=== PATIENT | male | born 1990 | race African-American/Black ===

== ENCOUNTER 2017-07-26 10:44 | Inpatient (IN) | payer OTHER ==
[~2017-07-26] VITALS: Ht 180.3 cm; Wt 143.7 kg
[2017-07-26] MEDS ORDERED: SODIUM CHLORIDE 0.9% 1000ML 1,000 ML IV STA (11:25)
[2017-07-26] MEDS ORDERED: LORAZEPAM 2 MG/ML 1 ML VIAL IV PRN ×3 (11:45→17:15)
[2017-07-26 11:47] LABS: HEMATOCRIT 46.8 % (42-52); MEAN CELL VOLUME 86.3 fL (80-100); MEAN CORPUSCULAR HEMOGLOBIN 28.4 pg (25-34); MEAN CORPUSCULAR HGB CONC 32.9 g/dl (32-36); MEAN PLATELET VOLUME 12.4 fL (7.4-10.4); PLATELET COUNT 201 K/uL (130-400); RED BLOOD COUNT 5.42 M/uL (4.7-6.1); WHITE BLOOD COUNT 9.27 K/uL (4.8-10.8)
[2017-07-26] MEDS ORDERED: TOPI25TA99 PO (12:06)
[2017-07-26] MEDS ORDERED: LEVE500T13 PO (12:06)
[2017-07-26] MEDS ORDERED: PRAZ1CAP PO (12:06)
[2017-07-26] MEDS ORDERED: DIPH25CA5 PO (12:06)
[2017-07-26] MEDS ORDERED: THIO1CAP PO (12:06)
[2017-07-26] MEDS ORDERED: DOXE50CA3 PO (12:06)
[2017-07-26] MEDS ORDERED: THIO5CAP2 PO (12:06)
[2017-07-26] MEDS ORDERED: ESCI1TAB10 PO (12:06)
[2017-07-26 12:12] LABS: ALKALINE PHOSPHATASE 65 U/L (45-117); ALT/SGPT 53 U/L (12-78); BLOOD UREA NITROGEN 14 mg/dl (7-18); CALCIUM 9.1 mg/dl (8.5-10.1); CARBON DIOXIDE 25 mmol/L (21-32); CHLORIDE 101 mmol/L (98-107); CREATININE 1.13 mg/dl (0.60-1.40); GLUCOSE 90 mg/dl (70-99); SODIUM 138 mmol/L (136-145)
[2017-07-26 12:23] LABS: ACETAMINOPHEN < 2 ug/ml (10-30)
[2017-07-26 12:52] LABS: PROTHROMBIN TIME (PATIENT) 11.1 SECONDS (9.0-12.0)
[2017-07-26 12:55] LABS: POTASSIUM 4.4 mmol/L (3.5-5.1)
[2017-07-26 14:35] VITALS: O2SAT 97
--- NOTE | 2017-07-26 15:11 | DIAGNOSTIC IMAGING REPORT ---
CT HEAD WITHOUT CONTRAST (CT) CLINICAL HISTORY: altered mental status COMPARISON STUDY: No previous studies for comparison. TECHNIQUE: Axial CT of the brain is performed from the vertex to the skull base. IV contrast was not administered for this examination. A dose lowering technique was utilized adhering to the principles of ALARA. CT DOSE: 537.48 mGy.cm FINDINGS: No intra or extra-axial mass lesions are visualized. There is no CT evidence of acute cortical infarction. There is no evidence of midline shift. There is no acute hemorrhage. No calvarial fractures are visualized. There is no evidence of pathologic ventricular dilatation. There is no evidence of acute sinusitis IMPRESSION: Normal noncontrast head CT. Electronically signed by: Bipin Kerr M.D. 07/26/2017 3:10 PM Dictated Date/Time: 07/26/2017 3:09 PM
[2017-07-26 15:29] LABS: URINE APPEARANCE CLEAR (CLEAR); URINE BILIRUBIN NEG (NEG); URINE COLOR YELLOW; URINE NITRITE NEG (NEG); UROBILINOGEN NEG (NEG)
[2017-07-26 15:40] LABS: MANUAL MICROSCOPIC REQUIRED? NO; REVIEW REQ? NO
[2017-07-26 15:46] LABS: BENZODIAZEPINE, URINE NEG (NEG); COCAINE,URINE NEG (NEG); PHENCYCLIDINE, URINE NEG (NEG)
[2017-07-26] MEDS ORDERED: POLYETHYLENE (MIRALAX) 17 GM PACK PO PRN (16:30)
[2017-07-26] MEDS ORDERED: MAGNESIUM HYDROXIDE SUSP 30 ML UDC PO PRN (16:30)
[2017-07-26] MEDS ORDERED: ACETAMINOPHEN 325 MG TAB PO PRN (16:30)
[2017-07-26] MEDS ORDERED: ALUMINUM/MAGNESIUM/SIMETH (MAALOX MAX) 30 ML UDC PO PRN (16:30)
[2017-07-26] MEDS ORDERED: ONDANSETRON INJ 2 MG/ML 2 ML VIAL IV PRN (16:30)
--- NOTE | 2017-07-26 16:40 | History and Physical ---
History & Physical Date of Service Jul 26, 2017. History & Physical delirium possible from substance abuse, hx of psychosis, anxiety, [id number]
[2017-07-26] MEDS ORDERED: LORAZEPAM INJ 1 MG in SYRINGE 0.5 ML IV PRN (17:15)
--- NOTE | 2017-07-26 17:42 | HISTORY & PHYSICAL EXAMINATION ---
DATE OF ADMISSION: 07/26/2017 This is a level 3 observation H&P - 35 minutes. CHIEF COMPLAINT: Agitation and delirium. HISTORY OF PRESENT ILLNESS: The patient is a 26-year-old white male with hx of anxiety sent to the hospital Emergency Room because of agitation, delirium and shaky. Per report, the patient possibly has overdosed this morning. Per correctional officers, the patient was taken to the [facility] at around 4:00 this morning. He had seizure-like episodes. There was a fingertip in right beside the patient, which is testing. the substance the patient taken was unknown. The patient has been uncooperative, has a spit mask on. aoc plans intelligence officer denied patient with any loss of conscious. When I interviewed with the patient, he is lethargic but awake, alert and orientated. I answered the questions, but may fall asleep very soon, somewhat agitation. Denied fever or chills. Denied headache, denied diaphoresis. Denied visual changes. Denied neck pain. Denied chest pain, palpitations. There was no cough or difficulty breathing. There was no nausea, vomiting, abdominal pain. Denied diarrhea or constipation. Denied dysuria, urgency frequencies. The patient has been moving upper and lower extremities. The patient is bilateral hand cuffed because of agitation. PAST MEDICAL HISTORY: Not significant per report. REVIEW OF SYSTEMS: Please see HPI. PAST SURGICAL HISTORY: Unknown. FAMILY HISTORY: Not obtainable. SOCIAL HISTORY: Denied tobacco abuse disorder, denied illicit drug abuse. Denied alcohol abuse disorder. MEDICATIONS: Taking at home prior to this admission include Benadryl 50 mg p.o. at bedtime, Doxepin 100 mg p.o. at bedtime, lisinopril 20 mg p.o. at bedtime, Keppra 500 mg p.o. b.i.d., prazosin 3 mg p.o. at bedtime, thiothixene 6 mg p.o. at bedtime, and Topamax 75 mg p.o. b.i.d. ALLERGIES: ALLERGY TO: 1. PENICILLIN 2. POSSIBLE SEAFOOD. PHYSICAL EXAMINATION: VITAL SIGNS: Temperature is 37.1, pulse 86 and the highest pulse was 135, respiratory rate 19, blood pressure 140/86, pulse ox was 97% in room air. GENERAL: The patient is a -British male, mild lethargic but arousable, awake, alert and orientated and answers some simple questions, but not able to get details of the information. May possible fall asleep very soon. HEENT: Normocephalic. Pupils equal, round, responds to light, about 4-5 mm. NECK: Supple. Thyroid no enlargement. Trachea midline. HEART: Regular rhythm. S1, S2. LUNGS: Decreased breathing sounds. There was no wheezing, rhonchi or crackles. ABDOMEN: Soft, nontender. Bowel sound was positive. GENITOURINARY AND RECTAL: Deferred. EXTREMITIES: Bilateral lower extremities, no edema. Homans sign was negative. Calf was nontender. NEUROLOGIC: Cranial nerves II-XII was intact. There was no facial droop. Moved upper and lower extremities. There was no obvious deficits. IMAGING STUDIES: Head CT studies, normal noncontrast head CT. LABORATORY STUDIES: WBC 9.2, hemoglobin 15, platelets 201. Sodium 138, potassium 4.4, BUN 14, creatinine 1.1. Blood glucose 90. EKG - sinus tachycardia. ASSESSMENT AND PLAN: A 26-year-old white male from inmate [facility], which the problem below: 1. Mental status changes, agitation, encephalopathy, possible from the substance abuse/over dose . 2. Possible history of anxiety, is taking medications of lisinopril. 3. Possible history of seizure, is taking medicine of Keppra. PLAN: Because of the patient still has lethargic and mild agitation, he got 1 dose of Ativan in the Emergency Room. We will keep him in observation, but I will be kept him in the tele monitor. Possible substance abuse which caused delirium and encephalopathy. Need to have fall precaution and injury precaution and I will arrange Ativan as needed 1 mg for agitation. We will continue Keppra, but change compared to IV because possible he is not able to eat and drink for now. As now as he able to wake up enough to eat and drink, we will give him some clear liquid diet, for now will give him some IV fluid. We will check the lab of TSH. Follow up lab tomorrow morning. Continue tele monitor. Will follow up the toxic screening. GI and DVT prophylaxis is covered. The patient is full code. MTDD
[2017-07-26] MEDS ORDERED: IV FLUIDS COMPLETED PRN (18:00)
--- NOTE | 2017-07-26 18:02 | EMERGENCY ROOM VISIT NOTE ---
History Report prepared by Lavern: Hernando Hernández Under the Supervision of: Dr. Shakeel Mendes M.D. First contact with patient: 11:25 Chief Complaint: OVERDOSE (ACCIDENTAL) Stated Complaint: OVERDOSE Nursing Triage Summary: Pt took an unknown substance, pt with spit mask on, guards at BS History of Present Illness The patient is a 26 year old male who presents to the Emergency Room with complaints of a persistent overdose that started earlier this morning. Per the correctional officers, the patient was taken to the [facility] around 0400 this morning, and had a seizure-like episode. There was a fingertip of a glove right beside the patient in his cell and this was concerning for drug paraphernalia. They have had a rash of K2 overdoses recently. That Glove is currently getting testing. There was no noted blood or trauma at the scene. At the moment , the substance that the patient took is unknown. The patient has been uncooperative, and has a spit mask on. His escorts deny current fevers, diaphoresis, breathing difficulties, nausea, vomiting, melena, hematochezia, weakness,rash, or other complaints. History limited secondary to patient's altered mental status. Source of History: other (correctional officers) History Limited By: AMS Onset: Earlier this morning Position: other (global - overdose) Quality: other (of unknown substance) Timing: other (persistent) Note: Associated symptoms: Patient was uncooperative, has spit mask on. Had seizure- type episode earlier this morning at [facility]. Review of Systems ROS limited secondary to patient's altered mental status. Past Medical & Surgical Medical Problems: (1) dilirium possible from sustance abuse (2) No pertinent past medical history Family History Unobtainable Social History Smoking Status: Unknown if Ever Smoked Marital Status: other (unknown) Housing Status: other (prisoner) Occupation Status: other (prisoner) Current/Historical Medications Scheduled Diphenhydramine Hcl (Benadryl), 50 MG PO HS Doxepin (Sinequan), 100 MG PO HS Escitalopram Oxalate (Lexapro), 20 MG PO HS Levetiracetam (Keppra), 500 MG PO BID Prazosin Hcl (Minipress), 3 MG PO HS Thiothixene (Navane), 1 MG PO HS Thiothixene (Navane), 5 MG PO HS Topiramate (Topamax ), 75 MG PO BID Allergies Coded Allergies: Penicillins (Unverified Allergy, Unknown, UNKNOWN, 07/26/17) Uncoded Allergies: SEAFOOD (Allergy, Unknown, UNKNOWN, 07/26/17) Physical Exam Vital Signs Date Time Temp Pulse Resp B/P (MAP) Pulse Ox O2 Delivery O2 Flow Rate FiO2 07/26/17 16:07 37.1 07/26/17 14:35 86 19 140/86 97 Room Air 07/26/17 11:01 135 07/26/17 10:54 105 18 114/94 94 Room Air Physical Exam GENERAL: Awake, agitated, very labile affect. HENT: Normocephalic, atraumatic. Oropharynx unremarkable. EYES: Normal conjunctiva. Sclera non-icteric. Pupils equal, round and reactive at 7 mm. NECK: Supple. No nuchal rigidity. FROM. No JVD. RESPIRATORY: Clear to auscultation. CARDIAC: Tachycardic rate, normal rhythm. Extremities warm and well perfused. Pulses equal. ABDOMEN: Soft, non-distended. No tenderness to palpation. No rebound or guarding. No masses. RECTAL: Deferred. MUSCULOSKELETAL: Upper extremities are atraumatic. Chest examination reveals no tenderness. The back is symmetrical on inspection without obvious abnormality. There is no CVA tenderness to palpation. No joint edema. LOWER EXTREMITIES: Lower extremities are atraumatic. Calves are equal size bilaterally and non-tender. No edema. No discoloration. NEURO: Altered sensorium, not following commands but responding to verbal stimuli. Rambling but speech is relatively clear, except nonsensical. SKIN: No rash or jaundice noted. Medical Decision & Procedures ER Provider Diagnostic Interpretation: CT: Radiology results as stated below per my review and radiologist interpretation CT HEAD WITHOUT CONTRAST (CT) CLINICAL HISTORY: altered mental status COMPARISON STUDY: No previous studies for comparison. TECHNIQUE: Axial CT of the brain is performed from the vertex to the skull base. IV contrast was not administered for this examination. A dose lowering technique was utilized adhering to the principles of ALARA. CT DOSE: 537.48 mGy.cm FINDINGS: No intra or extra-axial mass lesions are visualized. There is no CT evidence of acute cortical infarction. There is no evidence of midline shift. There is no acute hemorrhage. No calvarial fractures are visualized. There is no evidence of pathologic ventricular dilatation. There is no evidence of acute sinusitis IMPRESSION: Normal noncontrast head CT. Electronically signed by: Bipin Kerr M.D. 07/26/2017 3:10 PM Dictated Date/Time: 07/26/2017 3:09 PM Laboratory Results 07/26/17 11:20 07/26/17 11:20 07/26/17 12:22 Test 07/26/17 11:20 07/26/17 12:22 07/26/17 12:49 07/26/17 15:10 Red Blood Count 5.42 M/uL (4.7-6.1) Mean Corpuscular Volume 86.3 fL (80-100) Mean Corpuscular Hemoglobin 28.4 pg (25-34) Mean Corpuscular Hemoglobin Concent 32.9 g/dl (32-36) RDW Standard Deviation 43.4 fL (36.4-46.3) RDW Coefficient of Variation 13.8 % (11.5-14.5) Mean Platelet Volume 12.4 fL (7.4-10.4) Anion Gap 12.0 mmol/L (3-11) Est Creatinine Clear Calc Drug Dose 143.1 ml/min Estimated GFR () 102.0 Estimated GFR (Non- 88.0 BUN/Creatinine Ratio 12.0 (10-20) Calcium Level 9.1 mg/dl (8.5-10.1) Total Bilirubin 0.7 mg/dl (0.2-1) Alanine Aminotransferase (ALT/SGPT) 53 U/L (12-78) Alkaline Phosphatase 65 U/L (45-117) Total Protein 7.7 gm/dl (6.4-8.2) Albumin 4.0 gm/dl (3.4-5.0) Lipase 58 U/L (73-393) Salicylates Level < 1.7 mg/dl (2.8-20) Acetaminophen Level < 2 ug/ml (10-30) Ethyl Alcohol mg/dL < 3.0 mg/dl (0-3) Prothrombin Time 11.1 SECONDS (9.0-12.0) Prothromb Time International Ratio 1.0 (0.9-1.1) Activated Partial Thromboplast Time 26.8 SECONDS (21.0-31.0) Partial Thromboplastin Ratio 1.0 Direct Bilirubin 0.1 mg/dl (0-0.2) Aspartate Amino Transf (AST/SGOT) 22 U/L (15-37) Total Creatine Kinase 366 U/L (39-308) Thyroid Stimulating Hormone (TSH) 0.128 uIu/ml (0.300-4.500) Osmolality 288 mOsm/kg (280-300) Urine Color YELLOW Urine Appearance CLEAR (CLEAR) Urine pH 6.0 (4.5-7.5) Urine Specific [place] 1.020 (1.000-1.030) Urine Protein TRACE (NEG) Urine Glucose (UA) NEG (NEG) Urine Ketones TRACE (NEG) Urine Occult Blood NEG (NEG) Urine Nitrite NEG (NEG) Urine Bilirubin NEG (NEG) Urine Urobilinogen NEG (NEG) Urine Leukocyte Esterase TRACE (NEG) Urine WBC (Auto) 1-5 /hpf (0-5) Urine RBC (Auto) 0-4 /hpf (0-4) Urine Hyaline Casts (Auto) 1-5 /lpf (0-5) Urine Epithelial Cells (Auto) 5-10 /lpf (0-5) Urine Bacteria (Auto) NEG (NEG) Urine Opiates Screen NEG (NEG) Urine Methadone, Qualitative NEG (NEG) Urine Barbiturates NEG (NEG) Urine Phencyclidine (PCP) Level NEG (NEG) Ur Amphetamine/Methamphetamine NEG (NEG) MDMA (Ecstasy) Screen NEG (NEG) Urine Benzodiazepines Screen NEG (NEG) Urine Cocaine Metabolite NEG (NEG) Urine Marijuana (THC) NEG (NEG) Test 07/26/17 16:18 Laboratory results reviewed by me Medications Administered Medications (Trade) Dose Ordered Sig/Huber Route Start Time Stop Time Status Last Admin Dose Admin Sodium Chloride 1,000 ml @ 999 mls/hr Q1H1M STAT IV 07/26/17 11:25 07/26/17 12:25 DC 07/26/17 11:25 999 MLS/HR Lorazepam (Ativan Inj) 1 mg Q10M PRN IV 07/26/17 11:45 07/26/17 17:03 DC 07/26/17 11:47 1 MG Lorazepam (Ativan Inj) 1 mg Q10M PRN IV 07/26/17 17:15 08/25/17 17:14 07/26/17 15:00 1 MG ECG Indication: altered mental status Rate (beats per minute): 133 Rhythm: sinus tachycardia, other (poor baseline data) Findings: no acute ischemic change (no obvious), no ectopy ED Course 1125: Ordered NSS 1000 ml @ 999 mls/hr IV. 1131: The patient was evaluated in room C8. A limited history and physical exam was performed. 1145: Ordered Ativan Inj 1 mg IV PRN. 1305: I reevaluated the patient and he is improved somewhat. 1351: I reevaluated the patient and he is doing the same. 1449: The nursing staff notified me that the patient needs a cath urine. 1609: Upon reexamination, the patient was resting. I discussed the test results and treatment plan with the guards. They expressed understanding and agreement. The patient will be evaluated for further management. 1610: I discussed the patient with Dr. Shefali MATA box printing machine operator - he will evaluate the patient for further treatment. Medical Decision Prior records/ancillary studies reviewed and summarized above. Nursing notes reviewed and agree them. Additional history obtained from the correctional officers. The patient's history was concerning for altered mental status with probable overdose. Differential diagnosis: Etiologies such as toxicologic, infection, hypoglycemia, electrolyte abnormalities, cardiac sources, intracerebral event, neurologic, as well as others were entertained. Physical examination: As above. The patient was agitated but would calm down. ER treatment provided: IV Lock Normal saline hydration IV Ativan 1 mg 2 On reassessment the patient felt better. Diagnostics interpretation by me: ECG: Shows sinus tachycardia. Poor baseline data. Cardiac monitoring revealed the tachycardia to resolve. Sinus rhythm noted. The labs revealed an unremarkable CBC and chemistry panel. Urine drug screen was negative. Tylenol, salicylate, and alcohol levels negative. The patient's sympathetic stimulants and cannabinoids are pending. TSH was noted to be mildly low. Imaging studies: CT scan as above. Consultation: A consultation was placed with Dr. Meehan, the hospitalist. The case was discussed and diagnostics were reviewed. The patient was evaluated in the ER for further treatment. I did discuss the abnormal TSH. He will work this up as an inpatient. Medication Reconcilliation Current Medication List: was personally reviewed by me Blood Pressure Screening Patient's blood pressure: Normal blood pressure Consults Time Called: 1605 Consulting Physician: Dr. Shefali MATA box printing machine operator Returned Call: 1610 I discussed the patient with Dr. Shefali [place] [facility] [place] - he will evaluate the patient for further treatment. Impression Primary Impression: Encephalopathy Scribe Attestation The scribe's documentation has been prepared under my direction and personally reviewed by me in its entirety. I confirm that the note above accurately reflects all work, treatment, procedures, and medical decision making performed by me. Departure Information Dispostion Being Evaluated By Hospitalist Referrals Song RATLIFF (PCP) Patient Instructions My [facility]
[2017-07-26 18:23] VITALS: BP 96/53; PULSE 82; TEMP 37.5; O2SAT 96
[2017-07-26] MEDS ORDERED: PANTOprazole INJ 40 MG in SYRINGE 0 ML IV ONE (18:30)
[2017-07-26] MEDS: SODIUM CHLORIDE 0.9% 1000ML 1,000 ML IV SCH ×2 (18:45→22:58)
[2017-07-26 18:52] VITALS: BP 116/81; PULSE 67; TEMP 37.2; O2SAT 97
[2017-07-26] MEDS ORDERED: LEVETIRACETAM IV 500 MG in DEXTROSE 5% 100ML 100 ML IV SCH (21:00)
[2017-07-26] MEDS: ESCITALOPRAM OXALATE 20 MG TAB PO SCH (21:00)
[2017-07-26] MEDS: PRAZOSIN HCL 1 MG CAP PO SCH (21:00)
[2017-07-26] MEDS: DOXEPIN HCL 50 MG CAP PO SCH (21:00)
[2017-07-26] MEDS: TOPIRAMATE 25 MG TAB PO SCH (21:00)
[2017-07-26] MEDS: ENOXAPARIN 40 MG/0.4 ML SYR SC SCH (21:00)
[2017-07-26 23:26] VITALS: BP 116/81; PULSE 67; TEMP 37.2; Ht 180.3 cm; Wt 143.7 kg
[2017-07-27] VITALS (11 sets, daily range): BP systolic 84–158; BP diastolic 40–87; PULSE 39–78; TEMP 36.5–37.3; O2SAT 93–98
[2017-07-27] MEDS ORDERED: NURSING VERBAL MED ORDER ONE (04:15)
[2017-07-27] MEDS ORDERED: LEVETIRACETAM 500 MG TAB PO SCH (04:30)
[2017-07-27] MEDS: SODIUM CHLORIDE 0.9% 1000ML 1,000 ML IV SCH ×2 (05:38→08:32)
[2017-07-27 06:24] LABS: BASO % 0.2 %; BASO ABS # 0.01 K/uL (0-0.2); COMPLETE YES; EOS % 0.8 %; HEMATOCRIT 45.8 % (42-52); LYMPH % 38.5 %; LYMPH ABS # 2.41 K/uL (1.2-3.4); MEAN CELL VOLUME 85.4 fL (80-100); MEAN CORPUSCULAR HEMOGLOBIN 29.5 pg (25-34); MEAN CORPUSCULAR HGB CONC 34.5 g/dl (32-36); MEAN PLATELET VOLUME 12.2 fL (7.4-10.4); MONO % 8.8 %; NEUT % 51.7 %; PLATELET COUNT 175 K/uL (130-400); RED BLOOD COUNT 5.36 M/uL (4.7-6.1); WHITE BLOOD COUNT 6.26 K/uL (4.8-10.8)
[2017-07-27 06:53] LABS: CHOLESTEROL/HDL RATIO 4.5; MAGNESIUM 2.4 mg/dl (1.8-2.4); PHOSPHORUS 2.9 mg/dl (2.5-4.9)
[2017-07-27 08:28] LABS: VEN BLD GAS O2 SATURATION 89.1 %; VEN BLOOD GAS BASE EXCESS 0.9 mEq/L
[2017-07-27] MEDS ORDERED: SODIUM CHLORIDE 0.9% 1000ML 1,000 ML IV STA (08:51)
[2017-07-27] MEDS: TOPIRAMATE 25 MG TAB PO SCH ×2 (09:00→21:01)
[2017-07-27] MEDS ORDERED: DEXTROSE 50% 50 ML SYR ONE (09:45)
--- NOTE | 2017-07-27 09:51 | DIAGNOSTIC IMAGING REPORT ---
HEAD WITHOUT CONTRAST (CT) CT DOSE: 614.27 mGy.cm HISTORY: Mental status change obtunded, concern for bleed TECHNIQUE: Multiaxial CT images of the head were performed without the use of intravenous contrast. A dose lowering technique was utilized adhering to the principles of ALARA. Comparison: 07/26/2017 Findings: The paranasal sinuses and mastoid air cells are clear. The calvarium and skull base are intact. The ventricles and sulci are within normal limits. There is no mass, hematoma, midline shift, or acute infarct. Impression: No acute intracranial abnormality. The above report was generated using voice recognition software. It may contain grammatical, syntax or spelling errors. Electronically signed by: Rj Kendall M.D. 07/27/2017 9:50 AM Dictated Date/Time: 07/27/2017 9:34 AM
[2017-07-27] MEDS: D5W AND NSS 1,000 ML IV SCH ×3 (10:13→23:52)
[2017-07-27] MEDS ORDERED: PANTOprazole INJ 40 MG in SYRINGE 0 ML IV SCH (11:00)
--- NOTE | 2017-07-27 13:46 | Hospitalist Progress Note ---
Hospitalist Progress Note Date of Service Jul 27, 2017. (Belkis Hernandze .LUDIN) Subjective Pt evaluation today including: conversation w/ family (discussion with guards at bedside), physical exam, chart review, lab review, review of studies, review of inpatient medication list Voiding: no voiding problems Nursing called this morning because patient was obtunded with bradycardia in the 30s/40s. Upon seeing patient, he reacted to discomfort but was not fully arouseable. No s/s of seizure activity. Unable to obtain ROS from patient All Other Systems: Reviewed and Negative (Belkis Hernandez CRNP) Medications Medications Administered Medications (Trade) Dose Ordered Sig/Huber Route Start Time Stop Time Status Last Admin Dose Admin Sodium Chloride 1,000 ml @ 999 mls/hr Q1H1M STAT IV 07/26/17 11:25 07/26/17 12:25 DC 07/26/17 11:25 999 MLS/HR Lorazepam (Ativan Inj) 1 mg Q10M PRN IV 07/26/17 11:45 07/26/17 17:03 DC 07/26/17 11:47 1 MG Sodium Chloride 1,000 ml @ 150 mls/hr Q6H40M IV 07/26/17 16:18 07/27/17 09:55 DC 07/27/17 08:32 150 MLS/HR Pantoprazole Sodium 40 mg/ Syringe 10 ml @ 5 mls/min DAILY@11 IV 07/27/17 11:00 08/26/17 10:59 07/27/17 11:36 5 MLS/MIN Pantoprazole Sodium 40 mg/ Syringe 10 ml @ 5 mls/min TODAY@1830 ONCE IV 07/26/17 18:30 07/26/17 18:31 DC 07/26/17 18:45 5 MLS/MIN Lorazepam (Ativan Inj) 1 mg Q10M PRN IV 07/26/17 17:15 07/26/17 18:06 DC 07/26/17 15:00 1 MG Levetiracetam (Keppra Tab) 500 mg BID PO 07/27/17 04:30 07/27/17 10:12 DC 07/27/17 04:23 500 MG Sodium Chloride 1,000 ml @ 999 mls/hr Q1H1M STAT IV 07/27/17 08:51 07/27/17 09:51 DC 07/27/17 09:01 999 MLS/HR Dextrose (Dextrose 50% 50ML Syringe) 50 ml STK-MED ONCE .ROUTE 07/27/17 09:45 07/27/17 09:46 DC 07/27/17 09:49 25 ML Dextrose/Sodium Chloride 1,000 ml @ 150 mls/hr Q6H40M IV 07/27/17 10:00 08/26/17 09:59 07/27/17 10:13 150 MLS/HR (Belkis Hernandez, LUDIN) Objective Vital Signs Date Time Temp Pulse Resp B/P (MAP) Pulse Ox O2 Delivery O2 Flow Rate FiO2 07/27/17 11:38 36.5 52 16 101/70 (80) 96 Nasal Cannula 2.0 07/27/17 09:40 48 129/72 (91) 07/27/17 08:41 49 84/40 (55) 07/27/17 08:36 44 16 87/42 (57) 96 Nasal Cannula 2.0 07/27/17 08:00 Nasal Cannula 2.0 07/27/17 07:44 36.9 78 18 117/74 (88) 94 Room Air 07/27/17 04:16 37.3 76 19 113/52 (72) 94 Room Air 07/27/17 04:00 Room Air 07/27/17 00:12 36.7 63 17 121/71 (88) 97 Room Air 07/27/17 00:00 Room Air 07/26/17 23:26 37.2 67 16 116/81 Room Air 07/26/17 20:00 Room Air 07/26/17 18:52 37.2 67 16 116/81 (93) 97 Room Air 07/26/17 18:23 37.5 82 15 96/53 (67) 96 Room Air 07/26/17 16:07 37.1 07/26/17 14:35 86 19 140/86 97 Room Air (Belkis Hernandez, LUDIN) Physical Exam Notes: General: no distress Eyes: Pupils fixed, 4mm Respiratory: chest non tender, clear to auscultation, normal breath sounds, no respiratory distress, no accessory muscle use Cardiac: regular rate and rhythm, bradycardic, no rub or gallop, no murmur, no edema, no jvd GI/: active bowel sounds, no abd pain or tenderness, soft, non distended Extremities: normal range of motion, normal strength, non tender Neuro/Psych: reacts to pain and flutters eyelashes but unable to awaken fully Skin: normal color, dry (Belkis Hernandez, LUDIN) Laboratory Results Last 24 Hours Test 07/26/17 15:10 07/26/17 18:38 07/27/17 05:48 07/27/17 08:12 Urine Color YELLOW Urine Appearance CLEAR Urine pH 6.0 Urine Specific Cashion 1.020 Urine Protein TRACE Urine Glucose (UA) NEG Urine Ketones TRACE Urine Occult Blood NEG Urine Nitrite NEG Urine Bilirubin NEG Urine Urobilinogen NEG Urine Leukocyte Esterase TRACE Urine WBC (Auto) 1-5 /hpf Urine RBC (Auto) 0-4 /hpf Urine Hyaline Casts (Auto) 1-5 /lpf Urine Epithelial Cells (Auto) 5-10 /lpf Urine Bacteria (Auto) NEG Urine Opiates Screen NEG Urine Methadone, Qualitative NEG Urine Barbiturates NEG Urine Phencyclidine (PCP) Level NEG Ur Amphetamine/Methamphetamine NEG MDMA (Ecstasy) Screen NEG Urine Benzodiazepines Screen NEG Urine Cocaine Metabolite NEG Urine Marijuana (THC) NEG White Blood Count 6.26 K/uL Red Blood Count 5.36 M/uL Hemoglobin 15.8 g/dL Hematocrit 45.8 % Mean Corpuscular Volume 85.4 fL Mean Corpuscular Hemoglobin 29.5 pg Mean Corpuscular Hemoglobin Concent 34.5 g/dl Platelet Count 175 K/uL Mean Platelet Volume 12.2 fL Neutrophils (%) (Auto) 51.7 % Lymphocytes (%) (Auto) 38.5 % Monocytes (%) (Auto) 8.8 % Eosinophils (%) (Auto) 0.8 % Basophils (%) (Auto) 0.2 % Neutrophils # (Auto) 3.24 K/uL Lymphocytes # (Auto) 2.41 K/uL Monocytes # (Auto) 0.55 K/uL Eosinophils # (Auto) 0.05 K/uL Basophils # (Auto) 0.01 K/uL RDW Standard Deviation 42.8 fL RDW Coefficient of Variation 13.8 % Immature Granulocyte % (Auto) 0.0 % Immature Granulocyte # (Auto) 0.00 K/uL Phosphorus Level 2.9 mg/dl Magnesium Level 2.4 mg/dl Triglycerides Level 90 mg/dl Cholesterol Level 195 mg/dl HDL Cholesterol 43 mg/dl LDL Cholesterol, Calculated 134 mg/dl VLDL Cholesterol, Calculated 18 mg/dl Cholesterol/HDL Ratio 4.5 Vitamin B12 Level 385 pg/mL Folate 18.46 ng/mL Venous Blood pH 7.35 Venous Blood Partial Pressure CO2 50 mmHg Venous Blood Partial Pressure O2 62 mmHg Venous Blood HCO3 27 mmol/L Venous Blood Oxygen Saturation 89.1 % Venous Blood Base Excess 0.9 mEq/L Total Creatine Kinase 1472 U/L Free Thyroxine 0.91 ng/dl Test 07/27/17 09:44 07/27/17 10:11 Bedside Glucose 70 mg/dl 115 mg/dl (Belkis Hernandez ., LUDIN) Assessment and Plan [age] year old man here for altered mental status likely due to drug overdose. Altered mental status/drug overdose - per care home guards, there have recently been other inmates smoking synthetic marijuana and pcp. - tox screen negative but awaiting send outs for synthetic marijuana - CT head - subarachnoid hemorrhage is a possible complication of synthetic marijuana overdose - showed no acute process - patient became more wakeful as the day progressed, now easily arouseable Bradycardia - heart rate sustained in the 30s for brief periods, sinus elbert on the monitor - observation for now as other vital signs are steady and patient is more alert than earlier today Hypotension - likely due to dehydration as patient has been NPO and nightshift was unable to place an IV due to patient agitation and refusal - 1L bolus - hypotension resolved Elevated CPK - continue IVF - PRP in the am Chronic pain syndrome - continue Keppra, changed to IV while NPO DVT prophylaxis - enoxaprin Full code (Belkis Hernandez CRNP) Attending Attestation: Pt seen/examined, chart reviewed, care plan d/w LUDIN Hernandez. I agree w/ the mccormick components of her documentation. During my assessment the patient aroused and was in fact talking. He yelled multiple times as the staff repositioned his telemetry stickers. During my exam he started to laugh (he appeared to be ticklish while I was examining his abdomen). BSG was 70 during my visit. vitals - bradycardia when he falls into deep sleep; HR rises with activity; BPs modestly low this am, improved following fluid bolus afebrile gen - obese, NAD eyes - pupils 4mm but reactive during my exam mouth - MM severely dry neck - no JVD heart - elbert, s1, s2, no murmur lungs - CTA b/l abd - soft, NT ext - no edema neuro - downgoing great toes b/l, moves all 4 exts equally, no facial droop labs - CPK modestly elevated; repeat >1000 TSH suppressed, free T4 normal CT head negative x 2 tox screen negative A/P: 1. encephalopathy, presumed toxic; I don't see a metabolic cause or infectious cause at this time - slowly improving. VBG w/o hypercarbia it is presumed he overdosed on synthetic THC could he have overdosed on topamax, doxepin, navane, etc -- all of these things can cause excess sedation 2. rhabdomyolysis - 2nd to seizure? 2nd to the toxin itself? other? 3. hypoglycemia 2nd to prolonged fasting state - add dextrose to fluids. BSG' s q6h. spoke with emergency medical services coordinator of infirmary at [facility] - patient with h/o GERD, HTN, major depression, PTSD, mild intellectual disability, and chronic pain syndrome. The keppra is for chronic pain NOT seizure d/o. There were reports of possible seizure activity at the care home. plan - supportive care with fluids, avoid sedatives, etc IVF for rhabdomyolysis; CPK in am dextrose for hypoglycemia EEG to r/o seizure focus keppra IV while NPO I suspect he will gradually improve if this was an illicit, toxic ingestion at the care home Will recheck his BMP today to ensure no acidosis as well as an ammonia level to be complete Joseph Torres MD (Joseph Torres MD)
[2017-07-27] MEDS: LEVETIRACETAM IV 500 MG in DEXTROSE 5% 100ML 100 ML IV SCH (16:24)
[2017-07-27 18:46] LABS: BUN/CREATININE RATIO 13.3 (10-20); CALCIUM 8.8 mg/dl (8.5-10.1); CREATININE 1.04 mg/dl (0.60-1.40); POTASSIUM 4.1 mmol/L (3.5-5.1)
[2017-07-27] MEDS: ENOXAPARIN 40 MG/0.4 ML SYR SC SCH (21:00)
[2017-07-27] MEDS: PRAZOSIN HCL 1 MG CAP PO SCH (21:00)
[2017-07-27] MEDS: ESCITALOPRAM OXALATE 20 MG TAB PO SCH (21:00)
[2017-07-27] MEDS: DOXEPIN HCL 50 MG CAP PO SCH (21:01)
[2017-07-28] MEDS: LEVETIRACETAM IV 500 MG in DEXTROSE 5% 100ML 100 ML IV SCH (03:48)
[2017-07-28 04:29] VITALS: BP 104/48; PULSE 47; TEMP 37.1; O2SAT 92
[2017-07-28 06:28] LABS: BUN/CREATININE RATIO 15.6 (10-20); CALCIUM 8.4 mg/dl (8.5-10.1); CREATININE 0.97 mg/dl (0.60-1.40); POTASSIUM 3.8 mmol/L (3.5-5.1)
[2017-07-28] MEDS: D5W AND NSS 1,000 ML IV SCH ×2 (06:38→13:25)
[2017-07-28 08:25] VITALS: BP 127/64; PULSE 42; TEMP 36.6; O2SAT 97
[2017-07-28] MEDS: TOPIRAMATE 25 MG TAB PO SCH (09:34)
[2017-07-28 11:06] VITALS: BP 115/72; PULSE 67; TEMP 37.1; O2SAT 97
--- NOTE | 2017-07-28 15:08 | Discharge Instructions ---
Discharge Instructions Date of Service Jul 28, 2017. Admission Reason for Admission: Dilirium Possible From Substance Abuse Discharge Discharge Diagnosis / Problem: AMS due to substance overdose Discharge Goals Goal(s): Improve function Activity Recommendations Activity Limitations: resume your previous activity . Current Hospital Diet Patient's current hospital diet: Regular Diet Discharge Diet Recommended Diet: Regular Diet Procedures Procedures Performed: Head CT Pending Studies Studies pending at discharge: no List of pending studies: urine synthetic stimulants, urine synthetic cannibinoids, urine barbiturates Laboratory Results Lipid Panel Test 07/27/17 05:48 Range/Units Triglycerides Level 90 0-150 mg/dl Cholesterol Level 195 0-200 mg/dl HDL Cholesterol 43 mg/dl Cholesterol/HDL Ratio 4.5 LDL Cholesterol, Calculated 134 mg/dl Medical Emergencies . Who to Call and When: Medical Emergencies: If at any time you feel your situation is an emergency, please call 911 immediately. . Non-Emergent Contact Non-Emergency issues call your: Primary Care Provider . Past History Medical & Surgical History: (1) dilirium possible from sustance abuse (2) Encephalopathy . "Provider Documentation" section prepared by Belkis Hernandez. . VTE Core Measure Inpt VTE Proph given/why not?: Enoxaparin (Lovenox)SQ (patient refused administration)
--- NOTE | 2017-07-28 15:26 | Discharge Summary ---
Discharge Summary Date of Service Jul 28, 2017. (Belkis Hernandez CRNP) Discharge Summary Admission Date: Jul 27, 2017 at 09:56 Discharge Date: Jul 28, 2017 Discharge Disposition: Home Principal Diagnosis: AMS due to substance overdose Problems/Secondary Diagnoses: * bradycardia * hypotension * elevated cpk * chronic pain Procedures: Head CT Impression: No acute intracranial abnormality. (Belkis Hernandez CRNP) Problems/Secondary Diagnoses: 1. rhabdomyolysis 2. h/o mild intellectual disability 3. major depression 4. PTSD 5. GERD (Joseph Torres MD) Medication Reconciliation Continued Medications: Diphenhydramine Hcl (Benadryl) 25 Mg Cap 50 MG PO HS, CAP Doxepin (Sinequan) 50 Mg Cap 100 MG PO HS, CAP Escitalopram Oxalate (Lexapro) 20 Mg Tab 20 MG PO HS, TAB Levetiracetam (Keppra) 500 Mg Tab 500 MG PO BID, TAB Prazosin Hcl (Minipress) 1 Mg Cap 3 MG PO HS Thiothixene (Navane) 1 Mg Cap 1 MG PO HS for TAKE WITH 5MG TOTAL 6MG DOSE Thiothixene (Navane) 5 Mg Cap 5 MG PO HS for TAKE WITH 1 MG TOTAL DOSE 6MG Topiramate (Topamax ) 25 Mg Tab 75 MG PO BID, TAB Discharge Exam Review of Systems: Constitutional: No fever, No chills Respiratory: No shortness of breath Cardiovascular: No chest pain Abdomen: No pain, No nausea, No vomiting Physical Exam: General Appearance: WD/WN, no apparent distress Eyes: normal inspection Respiratory/Chest: chest non-tender, lungs clear, normal breath sounds, no accessory muscle use Cardiovascular: regular rate, rhythm, no edema, no murmur Abdomen / GI: normal bowel sounds, non tender, soft Neurologic/Psychiatric: alert, oriented x 3 Skin: normal color, warm/dry (Belkis Hernandez CRNP) Hospital Course [age] year old man here for altered mental status likely due to drug overdose. Altered mental status/drug overdose - per [facility] guards, there have recently been other inmates smoking synthetic marijuana and pcp. - tox screen negative but awaiting send outs for synthetic marijuana - CT head - subarachnoid hemorrhage is a possible complication of synthetic marijuana overdose - showed no acute process - today A/Ox4 Bradycardia - heart rate sustained in the 30s for brief periods, sinus elbert on the monitor - Today heart rate 40s and 50s, asymptomatic Hypotension - likely due to dehydration as patient had been NPO and nightshift was unable to place an IV due to patient agitation and refusal - 1L bolus - hypotension resolved Elevated CPK - continue IVF - PRP in the am Chronic pain syndrome - continue Keppra, changed to IV while NPO DVT prophylaxis - enoxaprin Full code Total Time Spent: Greater than 30 minutes This includes examination of the patient, discharge planning, medication reconciliation, and communication with other providers. (Belkis Hernandez CRNP) Attending Attestation: Pt seen/examined, chart reviewed, and discharge care plan d/w LUDIN Hernandez. I agree w/ the mccormick components of her discharge summary. 26yo AA male, inmate at [facility], who presented with altered mental status. It was suspected his encephalopathy was toxic in nature, possibly due to synthetic THC. Standard tox screen was negative, CT head x 2 were negative, and all other labs/ metabolic work-up were normal. There were no signs/symptoms of infection while here. He had evidence of mild rhabdomyolysis treated with copious hydration. With supportive care and time he regained normal consciousness and returned to baseline. At time of discharge the patient's urine testing for synthetic THC was pending. He refused EEG testing while hospitalized. [id number] it was suspected his altered mental status was due to a toxic ingestion and not seizure or other [employer] event. Discharge exam: gen - nad mouth - MMM, no bite romero neck - no JVD heart - RRR, s1, s2, no murmur lungs - CTA b/l abd - soft, NT ext - no edema neuro - strength 5/5 x 4 exts; DTRs 2+ b/l Joseph Torres MD (Joseph Torres MD) Discharge Instructions Please refer to the electronic Patient Visit Report (Discharge Instructions) for additional information. (Belkis Hernandez CRNP) Follow-Up with biomedical repair technician at [facility] within 48 hours (Joseph Torres MD) Additional Copies To [facility]
[2017-07-28] MEDS ORDERED: LEVETIRACETAM 500 MG TAB PO SCH (21:00)
[2017-08-02 12:31] LABS: SYNTHETIC CANNABINOIDS QL URIN NEGATIVE (Negative)
== END 2017-07-28 17:23 | DRG 917 ==
LOC: EDBD 10:44 → C.EDC 10:46 → C.2E 16:26 → EDBEDREQ 16:31 → ENRESERV 17:00 → OBSVTOIN 07-27 09:56
PROVIDERS: ADMIT Hospitalist; ATTEND Internal Medicine
DX: T50.901A Poisoning by unspecified drugs, medicaments and biological substances, accidental (unintentional), initial encounter (principal); G92 Toxic encephalopathy; M62.82 Rhabdomyolysis; Z68.41 Body mass index [BMI] 40.0-44.9, adult; R00.1 Bradycardia, unspecified; E86.0 Dehydration; I95.9 Hypotension, unspecified; R45.1 Restlessness and agitation; E16.2 Hypoglycemia, unspecified; G89.4 Chronic pain syndrome; I10 Essential (primary) hypertension; F43.10 Post-traumatic stress disorder, unspecified; F70 Mild intellectual disabilities; F32.9 Major depressive disorder, single episode, unspecified; E66.9 Obesity, unspecified; Z51.81 Encounter for therapeutic drug level monitoring; Z79.899 Other long term (current) drug therapy